=== PATIENT | male | born 1995 | race Caucasian/White ===

== ENCOUNTER 2016-09-06 15:40 | Emergency (ER) | payer OTHER ==
[2016-09-06] MEDS ORDERED: Benoxinate/Fluorescein 0.4-0.25% Ophth Soln 5 ML Bottle EYELF ONE (16:29)
--- NOTE | 2016-09-06 16:46 | EDM.PDOC ---
ED HPI EYE COMPLAINT - General Chief Complaint: Eye Problems Stated Complaint: FOREIGN BODY IN LEFT EYE Time Seen by Provider: 09/06/16 16:20 Source: Reports: Patient History Limitations: Reports: No limitations - History of Present Illness INITIAL COMMENTS - FREE TEXT/NARRATIVE: Patient is a 21-year-old male presents ED complaining of left eye irritation. States he awoke this morning and felt like something was stuck in his left eye. Noted the conjunctiva as red, irritated, sensitive to light, and had excessive tearing. 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 States he wears contacts he can keep in for one month. Denies any vision changes. Timing/Duration: Reports: Constant Location: left eye Quality: Reports: Other (Foreign body sensation) Severity: mild Improves with: Reports: None Worsens with: Reports: Other (Blinking, light) Context: Reports: projectile (Potential), contact lenses (Potential), welding arc (Potential) Associated Symptoms (Eye): Reports: burning, FB sensation, sensitivity to light. Denies: itching, eyelid redness, eyelid swelling, eyelid matting, decreased/blurred, vision (No vision changes), double vision - Related Data Allergies/ADRs: Allergies No Known Allergies Allergy (Verified 09/06/16 16:08) Home Meds: Ambulatory Orders Medication Instructions Recorded Confirmed . [No Known Home Meds] 11/24/13 09/06/16 Past Medical History - Past Health History Medical/Surgical History: Denies Medical/Surgical History Social & Family History - Tobacco Use Smoking Status *Q: Never Smoker - Caffeine Use Caffeine Use: Reports: Coffee - Recreational Drug Use Recreational Drug Use: No ED ROS GENERAL - Review of Systems Review Of Systems: ROS reveals no pertinent complaints other than HPI. ED EXAM GENERAL W FULL EYE - Physical Exam Exam: See Below Exam Limited By: No limitations General Appearance: alert, WD/WN, no apparent distress Visual acuity (R) 20/: 20 Visual acuity (L) 20/: 20 With Correction: Yes Eyelids: left: lid everted for exam, bilateral: normal appearance Conjunctiva & Sclera: left: injected Cornea Exam: left: examined with flourescein Extraocular Movements: bilateral: intact Pupillary Size: bilateral: 4 mm Pupillary Reaction: bilateral: brisk Anterior Chamber: left: normal appearance Ears: hearing grossly normal Throat/Mouth: Normal voice, No airway compromise Neck: normal inspection, supple Respiratory/Chest: no respiratory distress, no accessory muscle use Cardiovascular: normal peripheral pulses, regular rate, rhythm Neurological: alert, oriented, normal cognition Psychiatric: normal affect, normal mood Skin Exam: Warm, Dry Course - Vital Signs Last Recorded V/S: Last Vital Signs Temp 98.1 F 09/06/16 16:08 Pulse 79 09/06/16 17:30 Resp 18 09/06/16 17:30 BP 144/78 H 09/06/16 17:30 Pulse Ox 98 09/06/16 17:30 - Orders/Labs/Meds Meds: Medications Discontinued Medications Generic Name Dose Route Start Last Admin Trade Name Trice PRN Reason Stop Dose Admin Erythromycin 1 gm 09/06/16 17:04 09/06/16 17:27 Erythromycin 0.5% Ophth Oint EYELF 09/06/16 17:05 1 dose ONETIME ONE Administration Fluorescein Sodium/Benoxinate HCl 1 ml 09/06/16 16:29 09/06/16 16:30 Fluress Ophth Soln EYELF 09/06/16 16:30 Not Given ONETIME ONE - Re-Assessments/Exams Free Text/Narrative Re-Assessment/Exam: Proparacaine and fluress applied to left eye. Under slit lamp examination no uptake noted indicating corneal abrasion or ulcerations. Due to the injected conjunctiva and history of prolonged contact wearing I have ordered erythromycin ointment to be applied to affected eye. Remainder of the tube will go home with patient. Discharge instructions provided as documented. Departure - Departure Time of Disposition: 17:04 Disposition: Home, Self-Care 01 Condition: good Clinical Impression: Irritation of left eye Referrals: PCP,None [Primary Care Provider] - Forms: ED Department Discharge Additional Instructions: Unclear etiolgy of current complaint. No foreign debris noted. No signs of corneal abrasion present. Will start you on erythromycin ointment to be applied 4 times daily. Do this for the next 5 days. Followup with probation supervisor this coming Thursday for further evaluation. Return to ED for any new or worsening symptoms. Do not wear contacts in the affected eye or rub your eye as well. Take Tylenol and ibuprofen in alternating fashion for pain.
[2016-09-06] MEDS ORDERED: Erythromycin Base 0.5% Ophth Oint 1 GM Tube EYELF ONE (17:04)
[2016-09-06 18:16] VITALS: BP 144/78
== END 2016-09-06 17:30 | disposition home or self-care (01) ==
LOC: JD.ED 15:40
DX: H57.8 Other specified disorders of eye and adnexa (principal)
CPT/HCPCS: 99283; A9270

== ENCOUNTER 2019-01-20 02:57 | Emergency (ER) | payer OTHER ==
[2019-01-20 03:21] VITALS: BP 139/83
--- NOTE | 2019-01-20 03:26 | EDM.PDOC ---
ED HPI GENERAL MEDICAL PROBLEM - General Chief Complaint: Eye Problems Stated Complaint: BOTH EYES HURTING Time Seen by Provider: 01/20/19 03:25 Source of Information: Reports: Patient History Limitations: Reports: No Limitations - History of Present Illness INITIAL COMMENTS - FREE TEXT/NARRATIVE: 23-year-old male reports to the ED due to bilateral eye pain with excessive tearing in inability to keep his eyes open. They are extremely photophobic. He was [place] He did recognize that he perhaps had been a pressure welder's flash. Denies any grinding or pounding. Thighs are hurting although the left is perhaps a little worse than the right. Since trying to go to bed at 11:00 last night he is been unable to do so due to painful eyes. 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 Denies: Activity, Exercise, Lifting, Sick Contact, Trauma Associated Symptoms: Reports: Other (Running nose associated with tearful eyes.) Treatments HEALTH SERVICES COORDINATOR: Reports: Other (see below) Bilateral Eye Pain Score (Numeric/FACES): 10 - Related Data Allergies Allergy/AdvReac Type Severity Reaction Status Date / Time No Known Allergies Allergy Verified 01/20/19 03:21 Home Meds: Home Meds . 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[employer]) ED ROS GENERAL - Review of Systems Review Of Systems: See Below Constitutional: Reports: No Symptoms HEENT: Reports: Eye Discharge (Excessive tearing), Eye Pain, Rhinitis (Runny nose from excessive tearing) Respiratory: Reports: No Symptoms Cardiovascular: Reports: No Symptoms Endocrine: Reports: No Symptoms GI/Abdominal: Reports: No Symptoms : Reports: No Symptoms Musculoskeletal: Reports: Back Pain Skin: Reports: No Symptoms (Vocational low back pain) Neurological: Reports: No Symptoms Psychiatric: Reports: No Symptoms Hematologic/Lymphatic: Reports: No Symptoms Immunologic: Reports: No Symptoms ED EXAM GENERAL W FULL EYE - Physical Exam Exam: See Below Exam Limited By: No Limitations General Appearance: Alert, WD/WN, Moderate Distress (Can't keep his eyes open with lighted room. Examination a darkened room.) Eye Exam: Bilateral Eye: Corneal Abrasion (Has bilateral pitting of both corneas on slit lamp examination compatible with ultraviolet radiation barrett.), Other (Patient did get complete relief of pain with topical proparacaine.) Eyelids: Bilateral: Normal Appearance, Lid Everted for Exam (No foreign bodies identified) Conjunctiva & Sclera: Bilateral: Normal Appearance Cornea Exam: Bilateral: Corneal Abrasion (Bilateral pitted corneal abrasions from ultraviolet radiation barrett left worse on the right.) Extraocular Movements: Bilateral: Intact Pupils: Normal Accommodation Pupillary Size: Bilateral: 5 mm Pupillary Reaction: Bilateral: Brisk Anterior Chamber: Bilateral: Normal Appearance Course - Vital Signs Last Recorded V/S: Last Vital Signs Temp 36.4 C 01/20/19 03:17 Pulse 61 01/20/19 03:17 Resp 16 01/20/19 03:17 BP 139/83 01/20/19 03:17 Pulse Ox 97 01/20/19 03:17 - Orders/Labs/Meds Meds: Medications Discontinued Medications Generic Name Dose Route Start Last Admin Trade Name Trice PRN Reason Stop Dose Admin Ciprofloxacin 2.5 ml 01/20/19 03:37 01/20/19 03:45 Ciloxan 0.3% Ophth Soln EYEBOTH 01/20/19 03:38 2.5 ml ONETIME ONE Administration Diphenhydramine HCl 50 mg 01/20/19 03:38 01/20/19 03:45 Benadryl PO 01/20/19 03:39 50 mg ONETIME ONE Administration Ketorolac Tromethamine 2.5 ml 01/20/19 03:37 01/20/19 03:45 Acular 0.5% Ophth Soln EYELF 01/20/19 03:38 2.5 ml ONETIME ONE Administration Oxycodone/Acetaminophen 2 tab 01/20/19 03:38 01/20/19 03:46 Percocet 325-5 Mg PO 01/20/19 03:39 2 tab ONETIME ONE Administration - Radiology Interpretation Free Text/Narrative:: 23-year-old male presents to the ED with bilateral severe eye pain and excessive tearing. 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 Examination with slit lamp after topical proparacaine relieved his pain completely reveals pitting of the corneas bilaterally worse on the left than on the right. Treatment will be ketorolac eyedrops 2 drops to each eye every 6 hours to relieve pain. Cipro ophthalmic drops 2 drops every 8 hours for 2 days to prevent any secondary infection. Suggested Benadryl 50 mg by mouth and 2 Percocet tablets and sleep for the next 6-8 hours to allow us corneas to partially healed. 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 I think you'll find it impossible to function in the sunlight due to the corneal abrasions. It will take about 24 hours to heal. The patient was so advised. Departure - Departure Time of Disposition: 03:39 Disposition: Home, Self-Care 01 Condition: Fair Clinical Impression: Welders' flash Qualifiers: Laterality: bilateral Qualified Code(s): H16.133 - Photokeratitis, bilateral - Discharge Information *PRESCRIPTION DRUG MONITORING PROGRAM REVIEWED*: Not Applicable *COPY OF PRESCRIPTION DRUG MONITORING REPORT IN PATIENT SUZIE: Not Applicable Referrals: PCP,None [Primary Care Provider] - Forms: ED Department Discharge Additional Instructions: Evaluation the emergency room today in regards to severe bilateral eye pain with excessive tearing. You indicate that you are welding yesterday afternoon and did not necessarily appreciate getting pressure welder's flash to either eye. However examination with slit lamp reveals that both eyes have suffered ultraviolet radiation barrett causing current symptom complex. These usually heal over a period of 12-24 hours. Treatment is ketorolac eyedrops 2 drops each eye every 6 hours as needed for relief of pain. Cipro antibiotic drops 2 drops every 8 hours for 2 days to prevent infection. Usually you only need the ketorolac drops for about 1 day. The best thing you can do today is to go and sleep for the next 6 date perhaps even 12 hours to allow the corneas to start to heal. After this she may try and work if you can tolerate the pain with sunglasses on. Sunlight will be extremely difficult to tolerate for the next couple of days without sunglasses. These barrett will heal completely over. About 25 hours a virus. Send home to Percocet tablets for pain and Benadryl 50 mg that you can take if you so desire in the next few hours if the pain becomes intolerable again.
[2019-01-20] MEDS ORDERED: Ciprofloxacin 0.3% Ophth Soln 5 ML Bottle EYEBOTH ONE (03:37)
[2019-01-20] MEDS ORDERED: Ketorolac 0.5% Ophth Soln 5 ML Bottle EYELF ONE (03:37)
[2019-01-20] MEDS ORDERED: diphenhydrAMINE 50 MG Cap PO ONE (03:38)
[2019-01-20] MEDS ORDERED: Acetaminophen/oxyCODONE 325-5 MG Tab PO ONE (03:38)
== END 2019-01-20 03:56 | disposition home or self-care (01) ==
LOC: JD.ED 02:57
DX: H16.133 Photokeratitis, bilateral (principal)
CPT/HCPCS: 99283; A9270